=== PATIENT | female | born 1965 | race Caucasian/White ===

== ENCOUNTER → 2025-05-04 08:01 | Outpatient (REF) | payer BC, SELFPAY | LOC: HWWDC 08:01 | PROVIDERS: ATTENDING PHYSICIAN Physician Assistant Medical | DX: Z12.31 Encounter for screening mammogram for malignant neoplasm of breast (principal) | CPT/HCPCS: 77063; 77067 ==

== ENCOUNTER 2025-05-15 14:17 | Emergency (ER) | payer SELFPAY ==
[2025-05-15 14:28] VITALS: BP 143/90
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
[2025-05-15 17:13] VITALS: BP 126/79; BMI 33.2
[2025-05-15 17:22] LABS: Hematocrit 40.7 % (37.0-47.0); Hemoglobin 13.4 g/dL (12.0-16.0); Mean Corp Hgb Conc. 32.9 g/dL (33.0-37.0); Mean Corpuscular Volume 84.1 fL (81.0-99.0); Nucleated Red Blood Cells % 0 %; Platelet Count 237 10^3/uL (130-400); Red Cell Dist. Width 14.0 % (11.5-14.5)
[2025-05-15 17:41] LABS: HCG, Serum Qualitative Screen Negative
[2025-05-15 17:44] LABS: Blood Urea Nitrogen 23 mg/dl (7-17); Calcium 9.9 mg/dl (8.4-10.2); Carbon Dioxide 26 mmol/L (22-30); Chloride 105 mmol/L (98-107); Estimated Creatinine Clearance 102 ml/min; Glucose 93 mg/dl (70-99); Potassium 3.6 mmol/L (3.5-5.1); Sodium 138 mmol/L (135-145); eGFR > 60.00
[2025-05-15] MEDS: TYLENOL 650 MG PO (19:28)
[2025-05-15 19:57] VITALS: BP 132/78
[2025-05-15] MEDS: LIDOCAINE 4% PATCH 1 PATCH TOPICAL (19:59)
[2025-05-15 21:22] VITALS: BP 134/81
== END 2025-05-15 21:23 | disposition home or self-care (01) ==
LOC: EMR 14:17
PROVIDERS: Physician Assistant; EMERGENCY PHYSICIAN Emergency Medicine; FAMILY PHYSICIAN Physician Assistant Medical
DX: M54.2 Cervicalgia (principal); V43.52XA Car driver injured in collision with other type car in traffic accident, initial encounter; I10 Essential (primary) hypertension; J44.9 Chronic obstructive pulmonary disease, unspecified; E03.9 Hypothyroidism, unspecified; Z86.718 Personal history of other venous thrombosis and embolism; Z85.118 Personal history of other malignant neoplasm of bronchus and lung
CPT/HCPCS: 99284; 70496; 70498; 80048; 84703; 85025; Q9967

== ENCOUNTER → 2025-05-24 10:08 | Outpatient (REF) | payer BC, SELFPAY | LOC: HWRAD 10:08 | PROVIDERS: ATTENDING PHYSICIAN Physician Assistant Medical | DX: M81.0 Age-related osteoporosis without current pathological fracture (principal) | CPT/HCPCS: 77080 ==